=== PATIENT | male | born 1965 | race Caucasian/White ===

== ENCOUNTER 2019-11-16 16:52 | Emergency (ER) | payer BC ==
[~2019-11-16] VITALS: Ht 162.6 cm; Wt 88.5 kg
[~2019-11-16 16:52] MED LIST: AUGMENTIN 875-1 EACH PO; LEVOTHYROXINE25 MCG PO; SIMVASTATIN20 MG PO; ZITHROMAX250 MG PO
[2019-11-16] MEDS ORDERED: CYCLOBENZAPRINE10 MG PO (21:45)
== END 2019-11-16 22:00 | disposition home or self-care (01) ==
LOC: ED 16:52
DX: M54.42 Lumbago with sciatica, left side (principal); I10 Essential (primary) hypertension; E78.00 Pure hypercholesterolemia, unspecified; E03.9 Hypothyroidism, unspecified; Z79.899 Other long term (current) drug therapy
CPT/HCPCS: 74176; 80053; 81001; 85025; 96374; 96375; 96376; 99284-25; J1885; J2405

== ENCOUNTER 2021-07-29 05:45 | Day surgery (SDC) | payer BC ==
[~2021-07-29] VITALS: Ht 162.6 cm; Wt 93.7 kg
[~2021-07-29 05:45] MED LIST changes: +CYCLOBENZAPRINE10 MG PO; +ERGOCAL62.5 MCG PO; +LIPITOR40 MG PO; +LOVASTATIN40 MG PO
--- NOTE | 2021-07-29 06:30 | NUR ---
COVID SWAB DONE TO BOTH NARES AND SENT TO IN HOUSE LAB.
--- NOTE | 2021-07-29 06:44 | NUR ---
STATES HES HAD VACINE FOR COVID BUT CANT FIND RECORD.
--- NOTE | 2021-07-29 08:05 | NUR ---
07/29/21 0805 Liz Tiwari 0757 PATIENT INTO PACU. REPORT RECIEVED. PATIENT IS ON 2 LITERS OF OXYGEN BREATHING EQUAL AND UNLABORED. PATIENT AROUSABLE BY VERBAL STIMULI. VITAL SIGNS WNL. PATIENT ABDOMEN IS SOFT. DENIES ANY PAIN OR NAUSEA. IV FLUIDS INFUSING.
--- NOTE | 2021-07-29 08:24 | NUR ---
PT ALERT, ORIENTED AND HERE FOR FIRST SCOPE. PT SEEMS RELAXED, ALL QUESTIONS ASKED ANSWERED. SON TO TELEGRAPH OFFICE TELEPHONE CLERK FOLLOWING DC. GAVE BLESSING, WILL FOLLOW
--- NOTE | 2021-07-29 09:51 | NUR ---
0930 ALLOW TO REST QUIETLY TO ALLOW NAUSEA MEDICINE TO WORK. CALL LIGHT BY HAND ROOM DARKENED PER REQUEST.
--- NOTE | 2021-07-29 10:16 | NUR ---
SON HERE. PT WANTS TO GO HOME. DENIES NAUSEA. DCD PER WC AT 1010.
--- NOTE | 2021-07-30 03:09 | OR ---
[facility] [address] [facility] [place] [address] Signed DATE OF OPERATION: 07/29/2021 SURGEON: Jose Guadalupe Jacinto MD PREOPERATIVE DIAGNOSIS: Screening. POSTOPERATIVE DIAGNOSES: 1. Minimal left-sided diverticulosis. 2. 4 mm polyp at 5 cm. 3. 5 mm polyp at 18 cm/rectosigmoid junction. 4. 5 mm polyp at 15 cm. PROCEDURE: Colonoscopy with hot biopsy. ESTIMATED BLOOD LOSS: None. INDICATIONS: Mally is a 56-year-old gentleman asked to see me for his initial screening colonoscopy. He has no lower GI complaints. There is no family history of colon cancer or polyps. In the office, I gave him a pamphlet on colonoscopy and we reviewed the nature of the test. There is risk including, but not limited to gas bloating, crampy abdominal pain, bleeding, perforation requiring surgery, and missed diagnosis. We also discussed the need for IV conscious sedation. He had expressed understanding and wished to proceed. PROCEDURE IN DETAIL: Steve was taken into our endoscopy suite and placed in the left lateral decubitus position. He was given a total of 8 mg of Versed and 150 mcg of fentanyl to cover the case. A digital rectal exam was performed and this was unremarkable. His prostate is starting to get indurated. The adult colonoscope was introduced and advanced under direct visualization of the camera without difficulty. He needed some extra sedation as we passed the scope. His prep was overall good. We could easily see the appendiceal orifice and ileocecal valve. The scope was then slowly withdrawn. We took pictures throughout for photodocumentation. He does have diverticula in the left colon. They were small in size, few in number, and scattered about. The above-mentioned polyps have been removed with the help of hot biopsy forceps. Upon retroflexion of scope, there was no additional pathology noted above the anal canal. After this, the gas was suctioned Electronically Signed By: JOSE GUADALUPE JACINTO MD 07/30/21 0309 PATIENT NAME: MALLY CHO II OPERATIVE REPORT DATE OF : 61 REPORT #: [id number] PHYSICIAN: JOSE GUADALUPE JACINTO MD PCP: MAYANK CALVIN MD REPORT IS CONFIDENTIAL AND NOT TO BE RELEASED WITHOUT AUTHORIZATION [address] [place], [place] [address] Signed out, colonoscope removed. Steve tolerated the procedure quite well. RECOMMENDATIONS: I will see Steve back in my office in 7 to 14 days to review his results. Jose Guadalupe Jacinto MD ALB/MODL /[id number] cc: Dr. Mayank Jacinto MD Copies: JOSE GUADALUPE JACINTO MD ~ Electronically Signed By: JOSE GUADALUPE JACINTO MD 07/30/21 0309 PATIENT NAME: MALLY CHO II OPERATIVE REPORT DATE OF : 61 REPORT #: [id number] PHYSICIAN: JOSE GUADALUPE JACINTO MD PCP: MAYANK CALVIN MD REPORT IS CONFIDENTIAL AND NOT TO BE RELEASED WITHOUT AUTHORIZATION
--- NOTE | 2021-07-30 12:41 | PATH ---
[facility] [address] [place], [place] [address] Signed SPECIMEN(S): A POLYP AT 5 CM SPECIMEN(S): B POLYP AT 18 CM SPECIMEN(S): C POLYP AT 15 CM SPECIMEN SOURCE: A. POLYP AT 5 CM B. POLYP AT 18 CM C. POLYP AT 15 CM CLINICAL HISTORY: Screening colonoscopy. Post: Diverticulosis and polyps. FINAL PATHOLOGIC DIAGNOSIS: A. Colon, 5 cm, polypectomy: - Colonic mucosa with no significant pathologic changes. B. Colon, 18 cm, polypectomy: - Hyperplastic polyp. C. Colon, 15 cm, polypectomy: - Hyperplastic polyp. BRP:cml:C2NR MICROSCOPIC EXAMINATION: Histologic sections of all submitted blocks are examined by light microscopy. These findings, together with the gross examination, support the pathologic diagnosis. GROSS DESCRIPTION: Three specimens are received in three containers, labeled "TE." A. The specimen, labeled "TE, polyp at 5 cm," is received in formalin and consists of one bojorquez soft tissue fragment that measures 0.3 cm in greatest dimension. The specimen is entirely submitted in cassette (A1). B. The specimen, labeled "TE, polyp at 18 cm," is received in formalin and consists of one bojorquez soft tissue fragment that measures 0.2 cm in greatest dimension. The specimen is entirely submitted in cassette (B1). C. The specimen, labeled "TE, polyp at 15 cm," is received in formalin and consists of two bojorquez soft tissue fragments that measure 0.3 cm in greatest dimension. The specimen is entirely submitted in cassette (C1). AT (under the direct supervision of a pathologist) PATIENT NAME: MALLY CHO II PATHOLOGY DATE OF : 61 REPORT #: [id number] PHYSICIAN: IRWIN HOUSTON PCP: THA CALVIN MD REPORT IS CONFIDENTIAL AND NOT TO BE RELEASED WITHOUT AUTHORIZATION [facility] [address] [place] [address] Signed The Gross Description was prepared using a voice recognition system. The report was reviewed for accuracy; however, sound-alike word errors, addition and/or deletions may occur. If there is any question about this report, please contact Client Services. PERFORMING LABORATORY: The technical component was performed by [employer] [address] (CLIA# [id number]). Professional [facility] [employer] [facility], [address] [address] (CLIA# [id number]). Diagnostician: Good Dalal MD Pathologist Electronically Signed 07/30/2021 Copies: ~ PATIENT NAME: MALLY CHO II PATHOLOGY DATE OF : 61 REPORT #: [id number] PHYSICIAN: IRWIN PATHOLOGY PCP: THA CALVIN MD REPORT IS CONFIDENTIAL AND NOT TO BE RELEASED WITHOUT AUTHORIZATION
== END 2021-07-29 10:10 | disposition home or self-care (01) ==
LOC: OPS 05:45 → DS 05:45 → OPS 07:30
PROVIDERS: ATTEND Colon & Rectal Surgery
PROC: 0DBN8ZX Excision of Sigmoid Colon, Via Natural or Artificial Opening Endoscopic, Diagnostic (ICD-10-PCS; principal; 2021-07-29 07:30)
DX: Z12.11 Encounter for screening for malignant neoplasm of colon (principal); K63.5 Polyp of colon; E03.9 Hypothyroidism, unspecified; E78.5 Hyperlipidemia, unspecified; E66.9 Obesity, unspecified; E78.00 Pure hypercholesterolemia, unspecified; F17.290 Nicotine dependence, other tobacco product, uncomplicated; F17.220 Nicotine dependence, chewing tobacco, uncomplicated; Z68.35 Body mass index [BMI] 35.0-35.9, adult
CPT/HCPCS: 87502; 99153; A9270; C9803; G0500; J2250; J3010; J7121; U0003

== ENCOUNTER 2022-08-31 10:15 | Day surgery (SDC) | payer BC, OTHER ==
[2022-08-24 14:18] VITALS: BP 150/97
[~2022-08-31] VITALS: Ht 162.6 cm; Wt 88.6 kg
[2022-08-31 11:02] VITALS: BP 128/69
--- NOTE | 2022-08-31 12:22 | NUR ---
08/31/22 [address]18 PATIENT ARRIVES TO PACU UNRESPONSIVE TO PAINFUL STIMULI. ORAL AIRWAY IN PLACE. LAYING IN PRONE POSITION. O2 MASK AND CANULA ON AT 15 LITERS PER SLEEVE TAILOR. RESP EVEN AND UNLABORED.
[2022-08-31 13:38] VITALS: BP 125/95
--- NOTE | 2022-09-06 13:31 | PATH ---
[facility] [address] [facility] [place], [place] [address] Signed SPECIMEN(S): A BONE MARROW - CORE SPECIMEN(S): B BONE MARROW - ASPIRATION SPECIMEN(S): C FLOW CYTOMETRY, BM EDTA ASP CLINICAL HISTORY: 57-year-old male with progressive thrombocytosis. Eval. MPN. D75.839 (thrombocytosis, unspecified) DIAGNOSIS SUMMARY: Peripheral blood - Thrombocytosis, 602K platelets per ul. - No blasts are identified. Bone marrow biopsy and aspiration: - Normocellular marrow, 45%, with 1% blasts. - Trilineage hematopoiesis with no significant dyspoiesis. - Mild megakaryocytic hyperplasia with a normal morphology. - No myeloproliferative neoplasm or other malignancy identified by morphology. - Mutation studies for CALR, MPL, and JAK2 are pending. - Increased marrow iron stores by Prussian Blue stain. - See Diagnostic Comment. DIAGNOSTIC COMMENT: Thrombocytosis is present. However, no myeloproliferative neoplasm (MPN) is identified by morphology. Mutation studies for CALR, MPL, and JAK2 are pending at the time of this report. Chromosome analysis is also pending at the time of this report. The results will be reported in an addendum. JLP:C2NR HISTORICAL SUMMARY: 57 yo male with no prior hematology history in the [facility] data base. He presents for evaluation of unexplained thrombocytosis. PERIPHERAL BLOOD: HEMOGRAM (08/31/2022): WBC 8.8 K/ul, RBC 4.98 M/ul, HGB 14.0 g/dl, HCT 41.9%, MCV 84.1 fl, MCH 28.2 pg, MCHC 33.5 g/dl, RDW 13.0%, PLT 602 K/ul, MPV Not reported. AUTOMATED DIFFERENTIAL COUNT: Neutrophils 58.5%, lymphocytes 27.9%, monocytes 7.8%, eosinophils 4.6%, basophils 1.2%. The red blood cells are normocytic and normochromic with minimal aniso-poikilocytosis. The neutrophils are unremarkable. Lymphocytes are PATIENT NAME: MALLY CHO II PATHOLOGY DATE OF : 61 REPORT #: [id number] PHYSICIAN: IRWIN HOUSTON PCP: UNASSIGNED DOCTOR REPORT IS CONFIDENTIAL AND NOT TO BE RELEASED WITHOUT AUTHORIZATION [facility] [address] [place], [place] [address] Signed composed of small mature appearing forms. Platelets are increased in number with a normal morphology. No platelet clumping or RBC microangiopathic effect are identified. No blasts are identified. BONE MARROW: ASPIRATE SMEARS/TOUCH IMPRINT: The aspirate smears are suboptimal for evaluation with no significant marrow spicules and with peripheral blood contamination. Scattered erythroid precursors show adequate maturation with essentially normal morphology. The myeloid precursors show full maturation with unremarkable morphology. There is no increase in blasts. Megakaryocytes are identified with a normal morphology. BONE MARROW DIFFERENTIAL COUNT (300 cells): Blasts 1%. promyelocytes 1%, myelocytes 2%, metamyelocytes/bands/segs 45%, erythroid precursors 23%, lymphocytes 15%, monocytes 7%, eosinophils 5%, plasma cells 1%. M:E ratio: 2.3:1 BONE MARROW CORE BIOPSY/ASPIRATE CLOT/CELL BLOCK: The aspirate clot section is sub-optimal for evaluation with small, poorly formed spicules. The core biopsy is adequate for evaluation. The core biopsy demonstrates unremarkable trabecular bone. The cellularity is normal for age, estimated at 45%. The erythroid precursors are within normal limits with essentially unremarkable maturation. The myeloid precursors are unremarkable with no significant dyspoiesis. Blasts are not increased. Megakaryocytes appear mildly increased in number with a normal morphology. No granulomas, atypical lymphoid aggregates or foreign malignant cells are detected. SPECIAL STAINS (with adequate controls): - iron (aspirate smear): Increased marrow iron stores by Prussian Blue stain. No ring sideroblasts are identified. - iron (cell block): Positive for iron. - reticulin (block A1): Normal - PAS (block A1): Mildly increased megakaryocytes with a normal morphology. FLOW CYTOMETRY: Bone marrow, flow cytometry: - No diagnostic abnormal populations are identified by flow cytometry. - See Comment. COMMENT: While no hematopoietic abnormality is detected in this study, correlation with clinical, morphologic, and genetic findings is recommended for full interpretation and to assess for disease processes PATIENT NAME: MALLY CHO II PATHOLOGY DATE OF : 61 REPORT #: [id number] PHYSICIAN: IRWIN PATHOLOGY PCP: UNASSIGNED DOCTOR REPORT IS CONFIDENTIAL AND NOT TO BE RELEASED WITHOUT AUTHORIZATION [facility] [address] [place] [id number] Signed not fully examined by flow cytometry analysis, including myelodysplastic syndrome and myeloproliferative neoplasm. FLOW CYTOMETRY ANALYSIS: FLOW DIFFERENTIAL (% Total CD45 vs. SSC gating): Myeloid 73%; Lymphoid 16%; Monocyte 3%; Dim CD45/Blast: 1%. Cell Count: 6.7 x 10*3/uL. POPULATION ANALYSIS: BLASTS: Analysis of the dim CD45 gate demonstrates 1% myeloblasts by CD34/CD117 and 0.3% hematogones. LYMPHOID CELLS: The lymphocyte gate comprises 16% of total events and includes 87% T-cells with a CD4:CD8 ratio of 0.9:1 and normal junior T-cell antigen expression. 7% of lymphocytes are polyclonal B-cells with a kappa:lambda ratio of 2.1:1. The remainders are NK-cells. MYELOID CELLS: The myeloid population comprises 73% of the total events. Some increased expression of CD56 is observed. MONOCYTES: The monocyte population comprises 3% of the total events. Monocytes are not increased. Some increased expression of CD56 is observed. PLASMA CELLS: 0.2% plasma cells are detected in the screening gate neg-dimCD45/CD38. Plasma cells are CD45 dim and positive for CD19. ANTIBODIES USED: KAPPA, LAMBDA, CD20, CD10, CD19, CD23, CD38, CD16, CD56, CD8, CD5, CD2, CD4, CD7, CD3, CD14, CD33, CD13, HLADR, CD34, CD117, CD15, CD45: TOTAL ANTIBODIES USED: 23. TCS FINAL DIAGNOSIS PERFORMED BY: Víctor Glynn MD, Sep 01 2022 4:40PM CYTOGENETICS: Chromosome analysis is pending, and the result will be reported in an addendum. MOLECULAR / PCR: Mutation studies for JAK2 V617F (with reflex to exon 12-13), MPL, and CALR are pending, and the results will be reported in an addendum. GROSS DESCRIPTION: Two specimens are received in two containers. A. The specimen, labeled and designated "[place], bone marrow core biopsy," is received in formalin and consists of a red-bojorquez core of bone (2.4 cm in length x up to 0.2 cm in diameter). The specimen is submitted entirely in cassette (A1) following decalcification in [employer]. B. The specimen, labeled and designated "[place], bone marrow clot biopsy," is received in formalin and consists of a portion of red-brown clot-like material (2.5 x 1.3 x 0.4 cm in aggregate). The PATIENT NAME: MALLY CHO II PATHOLOGY DATE OF : 61 REPORT #: [id number] PHYSICIAN: IRWIN HOUSTON PCP: UNASSIGNED DOCTOR REPORT IS CONFIDENTIAL AND NOT TO BE RELEASED WITHOUT AUTHORIZATION [facility] [address] [place], [place] [address] Signed specimen is submitted entirely in cassette (B1). VB (under the direct supervision of a pathologist) The Gross Description was prepared using a voice recognition system. The report was reviewed for accuracy; however, sound-alike word errors, addition and/or deletions may occur. If there is any question about this report, please contact Client Services. ADDITIONAL NOTES: This test was developed and its performance characteristics determined by [employer]. It has not been cleared or approved by the US Food and Drug Administration. The FDA does not require this test to go through premarket FDA review. This test is used for clinical purposes. It should not be regarded as investigational or for research. This laboratory is certified under the Clinical Laboratory Improvement Amendments (CLIA) as qualified to perform high complexity clinical laboratory testing. PERFORMING LABORATORY: The technical preparation was performed by [employer], [address] [place], [place] [address] [address] (CLIA#: [id number]). Professional interpretation was performed by [facility], [address] [place] [id number] (CLIA#: [id number]). The technical component was performed by [employer], [address] [place] [address] (CLIA# [id number]). Professional interpretation was performed by [facility], [address] [place] [phone] (CLIA#: [id number]). IMAGES: A: [id number]: [id number] Diagnostician: Víctor Glynn MD Pathologist Electronically Signed 09/06/2022 Copies: ~ PATIENT NAME: MALLY CHO II PATHOLOGY DATE OF : 61 REPORT #: [id number] PHYSICIAN: IRWIN HOUSTON PCP: UNASSIGNED DOCTOR REPORT IS CONFIDENTIAL AND NOT TO BE RELEASED WITHOUT AUTHORIZATION
== END 2022-08-31 13:35 | disposition home or self-care (01) ==
LOC: OPS 10:15 → DS 10:15 → OPS 12:00 → DS 12:00 → OPS 13:35
PROVIDERS: ATTEND Specialist
PROC: 079T3ZX Drainage of Bone Marrow, Percutaneous Approach, Diagnostic (ICD-10-PCS; 2022-08-31)
PROC: 07DR3ZX Extraction of Iliac Bone Marrow, Percutaneous Approach, Diagnostic (ICD-10-PCS; principal; 2022-08-31 12:00)
DX: D75.839 Thrombocytosis, unspecified (principal); E03.9 Hypothyroidism, unspecified; E78.5 Hyperlipidemia, unspecified; E66.9 Obesity, unspecified; F17.220 Nicotine dependence, chewing tobacco, uncomplicated
CPT/HCPCS: 01112; 36415; 85025; 85060; J2704; J7121